=== PATIENT | female | born 1990 | race Caucasian/White ===

== ENCOUNTER 2022-11-16 11:47 | Emergency (ER) | payer MEDICAID ==
[~2022-11-16] VITALS: Ht 167.6 cm; Wt 74.8 kg
[2022-11-16 12:03] VITALS: BP_SYST 164
--- NOTE | 2022-11-16 12:17 | NUR ---
ER at bedside examining patient.
[2022-11-16] MEDS ORDERED: KETOROLAC TROMETHAMINE 60 MG/2 ML VIAL IM ONE (12:30)
[2022-11-16 12:51] LABS: BILIRUBIN,URINE NEGATIVE (NEGATIVE); BLOOD, URINE 3+ (NEGATIVE); CLARITY/URINE SL CLOUDY (CLEAR); COLOR,URINE YELLOW (YELLOW); GLUCOSE,URINE NEGATIVE (NEGATIVE); KETONES,URINE NEGATIVE (NEGATIVE); LEUKOCYTE ESTERASE ,URINE 1+ (NEGATIVE); NITRITE, URINE NEGATIVE (NEGATIVE); PROTEIN URINE TRACE (NEGATIVE); UROBILINOGEN,URINE 0.2 (0.2-1.0)
[2022-11-16 12:52] LABS: BASOPHILS # (AUTO) 0.1 K/uL (0.0-0.2); EOSINOPHILS # (AUTO) 0.1 K/uL (0.0-0.4); EOSINOPHILS % (AUTO) 1.2 % (0.0-4.0); HEMATOCRIT 43.7 % (36-48); LYMPHOCYTES # (AUTO) 2.6 K/uL (1.0-5.5); LYMPHOCYTES % (AUTO) 36.8 % (20.5-51.5); MEAN CORPUSCULAR HEMOGLOBIN 33 pg (27-31); MEAN CORPUSCULAR HGB CONC 34 % (32-36); MEAN CORPUSCULAR VOLUME 95 fL (79.0-98.0); MONOCYTES # (AUTO) 0.5 K/uL (0.0-1.0); MONOCYTES % (AUTO) 6.9 % (1.7-9.3); NEUTROPHILS # (AUTO) 3.8 K/uL (1.8-7.7); NEUTROPHILS % (AUTO) 54.1 % (40.0-70.0); PLATELET COUNT (AUTO) 207 K/uL (130-430); RED BLOOD CELL COUNT(AUTO) 4.61 MIL/uL (4.2-6.2); RED CELL DISTRIBUTION WIDTH 13.5 % (9.0-15.0); WHITE BLOOD COUNT (AUTO) 7.1 K/uL (4.8-10.8)
[2022-11-16 12:58] LABS: BACTERIA,URINE MODERATE /HPF (None Seen); MUCUS,URINE None Seen /LPF (None Seen)
[2022-11-16 13:03] LABS: CALCIUM 8.9 mg/dL (8.4-11.0); CREATININE 0.79 mg/dL (0.55-1.30)
[2022-11-16 13:09] LABS: ALBUMIN 3.9 g/dL (3.4-4.8); TOTAL BILIRUBIN 1.2 mg/dL (0.0-1.0)
--- NOTE | 2022-11-16 13:18 | NUR ---
[facility]iology dept [facility].
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
--- NOTE | 2022-11-16 13:56 | NUR ---
MD Slater bedside for patient followup reassessment.
[2022-11-16] MEDS ORDERED: DOXY100T2 PO (13:57)
[2022-11-16] MEDS ORDERED: LORA-259 PO (13:57)
[2022-11-16] MEDS ORDERED: NAPR-688 PO (14:00)
[2022-11-16] MEDS ORDERED: cefTRIAXone 1 GM VIAL IM ONE (14:00)
--- NOTE | 2022-11-16 14:30 | NUR ---
Patient given written and verbal discharge instructions and verbalizes understanding. ER MD Slater discussed with patient the results and treatment provided. Patient in stable condition. ID arm band removed. Rx ABX given for UTI. Patient educated on pain management and to follow up with PMD. Pain Scale 3/10 . Opportunity for questions provided and answered. Medication side effect fact sheet provided.
[2022-11-16 14:45] VITALS: BP_SYST 148
[2022-11-17 12:06] LABS: HEPATITIS A AB, IgM Negative (Negative); HEPATITIS B CORE AB, IgM Negative (Negative); HEPATITIS B SURFACE AG Negative (Negative)
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
== END 2022-11-16 14:30 | disposition home or self-care (01) ==
LOC: SED 11:47
DX: R10.84 Generalized abdominal pain (principal); K59.00 Constipation, unspecified; R53.1 Weakness; Z79.899 Other long term (current) drug therapy
CPT/HCPCS: 99285; 76700; 80053; 81000; 83690; 85025; 87086; 36415; 81025; 96372; 80074; 87491; J0696; J1885

== ENCOUNTER 2022-11-26 00:26 | Emergency (ER) | payer MEDICAID ==
[~2022-11-26] VITALS: Ht 167.6 cm; Wt 74.8 kg
[~2022-11-26 00:26] MED LIST: DOXY100T2 PO; LORA-259 PO; NAPR-688 PO
[2022-11-26 00:40] VITALS: BP_SYST 180
--- NOTE | 2022-11-26 00:40 | NUR ---
Patient presents to ED from home with c/o abd pain x1 week and rectal bleeding x2 hours priors to coming to ED. Patient reports pain 9/10 at this time. Patient reports dx of early kidney failure in August 2022. Patient A/Ox4, ambulatory, resp even and unlabored. Nad noted at this time. ER MD Millard made aware.
--- NOTE | 2022-11-26 00:45 | NUR ---
Patient placed in bed 1 with safety precautions in place and connected to monitor. Report given to LISA Arceo.
--- NOTE | 2022-11-26 00:54 | NUR ---
ER at bedside examining patient.
--- NOTE | 2022-11-26 01:08 | NUR ---
First contact. Pt placed in gown and on monitor. Mother present at bedside.
[2022-11-26] MEDS ORDERED: PANTOPRAZOLE SODIUM 40 MG/VIAL (PROTONIX) IVP ONE (01:15)
[2022-11-26] MEDS ORDERED: ONDANSETRON HCL 4 MG/2 ML VIAL IVP ONE (01:15)
[2022-11-26] MEDS ORDERED: NACL 0.9% 1,000 ML IV ONE (01:15)
[2022-11-26] MEDS ORDERED: DICYCLOMINE HCL 10 MG/5 ML SOLUTION PO ONE (01:15)
[2022-11-26 02:15] LABS: BASOPHILS % (AUTO) 0.6 % (0.0-2.0); EOSINOPHILS # (AUTO) 0.1 K/uL (0.0-0.4); EOSINOPHILS % (AUTO) 1.3 % (0.0-4.0); HEMATOCRIT 43.8 % (36-48); HEMOGLOBIN 14.7 g/dL (12.0-16.0); LYMPHOCYTES # (AUTO) 2.6 K/uL (1.0-5.5); LYMPHOCYTES % (AUTO) 33.1 % (20.5-51.5); MEAN CORPUSCULAR HEMOGLOBIN 32 pg (27-31); MEAN CORPUSCULAR HGB CONC 34 % (32-36); MEAN CORPUSCULAR VOLUME 96 fL (79.0-98.0); MONOCYTES # (AUTO) 0.7 K/uL (0.0-1.0); MONOCYTES % (AUTO) 8.5 % (1.7-9.3); NEUTROPHILS # (AUTO) 4.5 K/uL (1.8-7.7); NEUTROPHILS % (AUTO) 56.5 % (40.0-70.0); PLATELET COUNT (AUTO) 207 K/uL (130-430); RED BLOOD CELL COUNT(AUTO) 4.58 MIL/uL (4.2-6.2); RED CELL DISTRIBUTION WIDTH 13.4 % (9.0-15.0); WHITE BLOOD COUNT (AUTO) 7.9 K/uL (4.8-10.8)
[2022-11-26 02:51] LABS: BILIRUBIN,URINE NEGATIVE (NEGATIVE); BLOOD, URINE 2+ (NEGATIVE); COLOR,URINE YELLOW (YELLOW); GLUCOSE,URINE NEGATIVE (NEGATIVE); KETONES,URINE NEGATIVE (NEGATIVE); LEUKOCYTE ESTERASE ,URINE 2+ (NEGATIVE); NITRITE, URINE POSITIVE (NEGATIVE); PH,URINE 6.5 (5.0-8.0); PROTEIN URINE NEGATIVE (NEGATIVE); UROBILINOGEN,URINE 0.2 (0.2-1.0)
[2022-11-26 02:56] LABS: ALBUMIN 3.9 g/dL (3.4-4.8); CALCIUM 9.1 mg/dL (8.4-11.0); CREATININE 0.84 mg/dL (0.55-1.30)
[2022-11-26 03:18] LABS: CLARITY/URINE CLOUDY (CLEAR)
[2022-11-26 03:36] LABS: TOTAL BILIRUBIN 0.8 mg/dL (0.0-1.0)
[2022-11-26 04:26] LABS: BACTERIA,URINE MANY /HPF (None Seen); WBC,URINE >100 /HPF (0-3)
[2022-11-26] MEDS ORDERED: DICY10CA13 PO (05:14)
[2022-11-26] MEDS ORDERED: CEPH-548 PO (05:14)
[2022-11-26] MEDS ORDERED: OMEP40CA20 PO (05:14)
[2022-11-26] MEDS ORDERED: SUCR1TAB2 PO (05:14)
[2022-11-26 05:27] VITALS: BP_SYST 157
--- NOTE | 2022-11-26 05:27 | NUR ---
Patient given written and verbal discharge instructions and verbalizes understanding. ER MD discussed with patient the results and treatment provided. Patient in stable condition. ID arm band removed. IV catheter removed intact and dressing applied, no active bleeding.Rx of cephalexin, dicyclomine, omeprazole, and carafate given. Patient educated on pain management and to follow up with PMD. Opportunity for questions provided and answered.
== END 2022-11-26 05:27 | disposition home or self-care (01) ==
LOC: SED 00:26
DX: N12 Tubulo-interstitial nephritis, not specified as acute or chronic (principal); R10.13 Epigastric pain; K92.2 Gastrointestinal hemorrhage, unspecified; R11.10 Vomiting, unspecified; Z79.899 Other long term (current) drug therapy
CPT/HCPCS: 99285; 74177; 96374; 96361; 96375; 80053; 81000; 83690; 85025; 87086; 36415; 76376; 81025; J2405; C9113; Q9967; J7030